=== PATIENT | female | born 1970 | race Hispanic/Latino ===

== ENCOUNTER → 2020-12-15 | Day surgery (SDC) | payer BC ==
[2020-12-12 12:56] VITALS: BMI 43.0
[~2020-12-15] MED LIST: CeleCOXIB 100 MG CAP ONE; Dexamethasone 4 mg/ml Vial ONE; Famotidine/PF 20 mg/2ml Vial ONE; Fentanyl 100 MCG/2 ML VIAL ONE; Gabapentin 300 MG CAP ONE; Ketorolac Tromethamine 30 MG/ML VIAL ONE; Lidocaine 1% MPF 2 ML VIAL ONE; Lidocaine 1% w/Epinephrine 1:100K 30 ML VIAL ONE; Lidocaine 2% PF 5 ML VIAL ONE; Midazolam HCl 2 mg/2 ml Vial ONE; Ondansetron PF 4 MG/2 ML Vial ONE; PROPOFOL 20 ML ONE; ceFAZolin 2 GM/DEX 5% 100 ML BAG ONE
== END ==
LOC: CSHSDC 09:51
PROVIDERS: ATTEND Obstetrics & Gynecology
PROC: 0UDB8ZZ Extraction of Endometrium, Via Natural or Artificial Opening Endoscopic (ICD-10-PCS; principal; 2020-12-15)
DX: R93.89 Abnormal findings on diagnostic imaging of other specified body structures (principal); D64.9 Anemia, unspecified; N92.1 Excessive and frequent menstruation with irregular cycle; I10 Essential (primary) hypertension; E11.9 Type 2 diabetes mellitus without complications; E78.5 Hyperlipidemia, unspecified; K21.9 Gastro-esophageal reflux disease without esophagitis; E66.9 Obesity, unspecified; Z68.41 Body mass index [BMI] 40.0-44.9, adult; Z79.84 Long term (current) use of oral hypoglycemic drugs; Z79.899 Other long term (current) drug therapy
CPT/HCPCS: 36415; 36416; 86850; 86900; 86901; 88305; J1100; J1885; J2001; J2250; J2405; J2704; J3010; S0028

== ENCOUNTER 2021-03-26 13:33 | Outpatient (CLI) | payer BC | END 2021-03-26 13:34 | disposition home or self-care (01) | LOC: CSHLAB 13:33 | PROVIDERS: ATTEND Obstetrics & Gynecology | DX: Z01.818 Encounter for other preprocedural examination (principal); Z20.822 Contact with and (suspected) exposure to COVID-19; N92.0 Excessive and frequent menstruation with regular cycle | CPT/HCPCS: 80053; 84703; 85027; 86850; 86900; 86901; 93005; 93010; U0003; U0005 ==

== ENCOUNTER 2021-03-31 05:39 | Day surgery (SDC) | payer BC ==
[2021-03-20 14:24] VITALS: BMI 44.4
[2021-03-26 14:40] LABS: Hemoglobin 12.6 g/dL (12.0-15.5); Mean Corpuscular HGB CONC 30.7 g/dL (32.0-36.0); Mean Corpuscular Hemoglobin 25.3 pg (27.0-33.0); Mean Corpuscular Volume 82.4 fl (81.6-98.3); Mean Platelet Volume 10.1 fl (7.4-10.4); Platelet Count 290 10x3/uL (150-450); Red Blood Cell (RBC) Count 4.99 10x6/uL (3.90-5.03); White Blood Cell (WBC) Count 8.8 10x3/uL (3.5-10.5)
[2021-03-26 14:54] LABS: BHCG - Serum Negative (NEGATIVE); Pregs Control Background? CLEAR/WHITE (CLR/WHITE); Pregs Control Bar Appear? YES (CONTROL BAR)
[2021-03-26 15:01] LABS: ALT (SGPT) 20 U/L (8-55); AST (SGOT) 16 U/L (5-34); Albumin 4.8 g/dL (3.5-5.0); Alkaline Phosphatase 60 U/L (40-110); Anion Gap 15 mmol/L (10-20); BUN (Urea Nitrogen) 7 mg/dL (7.0-18.7); Bilirubin, Total 0.4 mg/dL (0.2-1.2); Calc. Creatinine Clearance 0 mL/min (70-130); Calcium 9.8 mg/dL (7.8-10.44); Carbon Dioxide 23 mmol/L (22-29); Chloride 103 mmol/L (98-107); Globulin 3.1 g/dL (2.4-3.5); Glucose 140 mg/dL (70-105); Potassium 3.8 mmol/L (3.5-5.1); Protein, Total 7.9 g/dL (6.0-8.3); Sodium 137 mmol/L (136-145)
[2021-03-28 00:06] LABS: SARS-CoV-2 PCR by NAA Not Detected (NotDetected)
[2021-03-31] MEDS ORDERED: Gabapentin 300 MG CAP ONE (06:03)
[2021-03-31] MEDS ORDERED: CeleCOXIB 100 MG CAP ONE (06:04)
[2021-03-31] MEDS ORDERED: Lidocaine 1% MPF 2 ML VIAL ONE (06:04)
[2021-03-31] MEDS ORDERED: Famotidine/PF 20 mg/2ml Vial ONE (06:04)
[2021-03-31] MEDS ORDERED: EPINEPHrine 1 MG/ML AMP ONE (06:29)
[2021-03-31] MEDS ORDERED: Methylene Blue 50 MG/10 ML AMPUL ONE (06:30)
[2021-03-31] MEDS ORDERED: Bupivacaine PF 0.5% 30 ML VIAL ONE ×2 (06:31)
[2021-03-31] MEDS ORDERED: Fentanyl 100 MCG/2 ML VIAL ONE (06:46)
[2021-03-31] MEDS ORDERED: Midazolam HCl 2 mg/2 ml Vial ONE (06:46)
[2021-03-31] MEDS ORDERED: PROPOFOL 20 ML ONE (06:46)
[2021-03-31] MEDS ORDERED: Rocuronium Bromide 10 MG/ML (10ML VIAL) ONE (06:47)
[2021-03-31] MEDS ORDERED: Lidocaine 1% PF 5 ML VIAL ONE (06:47)
[2021-03-31] MEDS ORDERED: Ondansetron PF 4 MG/2 ML Vial ONE (06:47)
[2021-03-31] MEDS ORDERED: Dexamethasone 4 mg/ml Vial ONE (06:47)
[2021-03-31] MEDS ORDERED: ceFAZolin 2 GM/Dextrose 50 ML IVPB ONE (07:28)
[2021-03-31] MEDS ORDERED: CEFAZOLIN 1 GM VIAL ONE (07:55)
[2021-03-31] MEDS ORDERED: Sterile Water 10 ML ONE (07:55)
[2021-03-31] MEDS ORDERED: Ropivacaine 0.2% 550 ML 750 ML NERVE BLCK SCH (08:15)
[2021-03-31] MEDS ORDERED: SUGAMMADEX SODIUM 200 MG/2 ML VIAL ONE (08:49)
[2021-03-31] MEDS ORDERED: Ropivacaine 0.2% 550 ML 550 ML NERVE BLCK SCH (09:00)
[2021-03-31] MEDS ORDERED: Ketorolac Tromethamine 30 MG/ML VIAL ONE (09:58)
== END 2021-03-31 12:40 | disposition home or self-care (01) ==
LOC: CSHSDC 05:39
PROVIDERS: ATTEND Obstetrics & Gynecology
PROC: 0UT74ZZ Resection of Bilateral Fallopian Tubes, Percutaneous Endoscopic Approach (ICD-10-PCS; principal; 2021-03-31)
PROC: 0UT24ZZ Resection of Bilateral Ovaries, Percutaneous Endoscopic Approach (ICD-10-PCS; principal; 2021-03-31)
PROC: 0UT94ZZ Resection of Uterus, Percutaneous Endoscopic Approach (ICD-10-PCS; principal; 2021-03-31)
DX: N80.0 Endometriosis of uterus (principal); D25.9 Leiomyoma of uterus, unspecified; N83.202 Unspecified ovarian cyst, left side; D64.9 Anemia, unspecified; E78.5 Hyperlipidemia, unspecified; K21.9 Gastro-esophageal reflux disease without esophagitis; E11.9 Type 2 diabetes mellitus without complications; I10 Essential (primary) hypertension; E66.01 Morbid (severe) obesity due to excess calories; Z68.41 Body mass index [BMI] 40.0-44.9, adult; Z79.84 Long term (current) use of oral hypoglycemic drugs; Z79.899 Other long term (current) drug therapy; Z20.822 Contact with and (suspected) exposure to COVID-19
CPT/HCPCS: 80053; 84703; 85027; 86850; 86900; 86901; 88307; A4306; J0171; J0690; J1100; J1885; J2250; J2405; J2704; J2795; J3010; Q9968; S0020; S0028; U0003; U0005